=== PATIENT | female | born 2000 | race Caucasian/White ===

== ENCOUNTER → 2022-06-02 08:10 | Outpatient (CLI) | payer OTHER, SELFPAY ==
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
== END ==
PROVIDERS: Referring Provider Registered Nurse; Visit Provider Registered Nurse
DX: M25.511 Pain in right shoulder (principal)
CPT/HCPCS: 73030

== ENCOUNTER 2025-01-25 08:18 | Emergency (ER) | payer SELFPAY ==
[2025-01-25 08:23] VITALS: BP 131/80; PULSE 90; RESP 17; TEMP 36.9; O2SAT 96; BMI 26.6
--- NOTE | 2025-01-25 09:39 | ED_ITS ---
HPI - Neck Pain/Injury General Chief Complaint: Neck Pain/Injury Stated Complaint: Neck pain since this morning Time Seen by Provider: 01/25/25 09:29 Mode of arrival: Ambulatory History of Present Illness HPI Narrative: 24-year-old female with no chronic neck problems complains of left-sided neck discomfort, worse with any attempted movement, position of comfort with right lateral neck position. No injury or trauma new activities. She has had no recent chiropractic or other neck manipulation. No numbness or weakness to upper extremities right or left. She has not attempted any medications. She is fearful of needles, we would like oral therapies if at all possible. No other areas of discomfort. No head or face injuries or pain. Related Data Previous Rx's Medication Instructions Recorded methocarbamol 500 mg tablet 500 mg PO TID PRN Neck strain #20 06/02/22 tabs oxycodone-acetaminophen 5 mg-325 1 tab PO Q6H PRN pain #10 tabs 06/02/22 mg tablet (Percocet) hydrocodone 5 mg-acetaminophen 325 1 tab PO Q6H PRN pain #7 tabs 01/25/25 mg tablet methocarbamol 500 mg tablet 500 mg PO TID 7 days #21 tabs 01/25/25 naproxen 500 mg tablet 500 mg PO BID 7 days #14 tabs 01/25/25 Allergies Allergy/AdvReac Type Severity Reaction Status Date / Time No Known Drug Allergies Allergy Unverified 06/02/22 07:42 Patient History Social History Smoking Status: Never smoker Smoking Status: Never smoker Exam Narrative Exam Narrative: GENERAL: Well-developed patient, in mild distress. HEAD: Atraumatic. Normocephalic. Head rotated to the right in position of comfort due to neck/shoulder pain. EYES: Pupils equal round and reactive. Extraocular motions intact. No scleral icterus. No injection or drainage. ENT: Nose without bleeding, purulent drainage. Throat without erythema, tonsillar hypertrophy or exudate. Airway patent. NECK: No posterior midline neck tenderness, no paraspinal neck tenderness. CARDIOVASCULAR: Regular rate and rhythm without murmurs, gallops, or rubs. RESPIRATORY: Clear to auscultation. Breath sounds equal bilaterally. No wheezes, rales, or rhonchi. GASTROINTESTINAL: Abdomen soft, non-tender, nondistended. EXTREMITIES: No edema or joint tenderness. Has tenderness along the left superior trapezius and along the left superior rhomboid musculature. BACK: Nontender without deformity or crepitance. No flank tenderness. NEURO: AOx3. SKIN: No rash or erythema of visible areas Initial Vital Signs Initial Vital Signs: Vital Signs Temperature 98.4 F 01/25/25 08:23 Pulse Rate 90 01/25/25 08:23 Respiratory Rate 17 01/25/25 08:23 Blood Pressure 131/80 01/25/25 08:23 Pulse Oximetry 96 01/25/25 08:23 Oxygen Delivery Method Room Air 01/25/25 08:23 Course Orders Ordered: Discontinued Medications Acetaminophen (Acetaminophen 325 Mg Tablet) 975 mg PO NOW ONE Stop: 01/25/25 09:41 Last Admin: 01/25/25 09:51 Dose: 975 mg Documented By: PEARL Methocarbamol (Methocarbamol 500 Mg Tablet) 500 mg PO NOW ONE Stop: 01/25/25 09:41 Last Admin: 01/25/25 09:52 Dose: 500 mg Documented By: PEARL Naproxen (Naproxen 250 Mg Tablet) 500 mg PO NOW ONE Stop: 01/25/25 09:41 Last Admin: 01/25/25 09:51 Dose: 500 mg Documented By: PEARL Vital Signs Vital signs: Vital Signs - 8 hr 01/25/25 08:23 Temperature 98.4 F Pulse Rate 90 Respiratory Rate 17 Blood Pressure 131/80 Pulse Oximetry 96 Oxygen Delivery Method Room Air MDM - Neck Pain/Injury MDM Narrative Medical decision making narrative: 24-year-old female awoke this morning with left shoulder neck pain. No trauma or injury new activities. Some tenderness on examination to the superior left rhomboid and superior left trapezius, no midline or paraspinal cervical spine ar ea posterior tenderness. No skin changes or rash. No weakness to upper extremities. Patient is needle phobic, prefers oral meds only. No medications taken. Suspected muscle spasm. Trial of oral Robaxin muscle relaxant, oral naproxen, oral Tylenol. Improved symptoms, able to hold had upright position, still painful to move. We will hold off on advanced cervical spine imaging. Still most consistent with left rhomboid/trapezius strain. Trial of further anti-inflammatory, analgesic, and muscle relaxant medications as an outpatient. Patient agreeable. Prescription also sent for hydrocodone 5/325 #7 tabs, to use if needed. Has ride home, boyfriend at bedside. Return precautions discussed. Discharge Plan Departure Patient Disposition: Home Clinical Impression: Spasm of left trapezius muscle, Strain of left rhomboid muscle Activity Restrictions/Additional Instructions: Nontraumatic left-sided shoulder neck discomfort. On examination there is tenderness to the left upper rhomboid muscle as well as the left upper trapezius muscle. Fear of needles, injections held. Oral medications naproxen and methocarbamol and Tylenol given. Improved symptoms. We will send prescription for naproxen and methocarbamol to your pharmacy. Consider warm pads and stretching as tolerated. Recheck symptoms with your regular doctor in the next couple of days. Return to this/nearest emergency department for any change worsening symptoms or any concerns prior. Prescriptions: New methocarbamol 500 mg tablet 500 mg PO TID 7 Days Qty: 21 0RF naproxen 500 mg tablet 500 mg PO BID 7 Days Qty: 14 0RF hydrocodone-acetaminophen 5-325 mg tablet 1 tab PO Q6H PRN (Reason: pain) Qty: 7 0RF No Action methocarbamol 500 mg tablet 500 mg PO TID PRN (Reason: Neck strain) Qty: 20 0RF oxycodone-acetaminophen [Percocet] 5-325 mg tablet 1 tab PO Q6H PRN (Reason: pain) Qty: 10 0RF Stand Alone Forms: Patient Portal/API/Survey
[2025-01-25] MEDS: ACETAMINOPHEN 325 MG TABLET 975 MG PO (09:51)
[2025-01-25] MEDS: NAPROXEN 250 MG TABLET 500 MG PO (09:51)
[2025-01-25] MEDS: methocarbamoL 500 MG TABLET PO (09:52)
== END 2025-01-25 11:37 | disposition home or self-care (01) ==
PROVIDERS: Emergency Provider Emergency Medicine
DX: M62.830 Muscle spasm of back (principal); S29.012A Strain of muscle and tendon of back wall of thorax, initial encounter
CPT/HCPCS: 99283